=== PATIENT | male | born 1990 | race Caucasian/White ===

== ENCOUNTER 2018-10-30 19:37 | Emergency (ER) | payer BC ==
[2018-10-30 20:10] VITALS: BP 116/79
[2018-10-30] MEDS ORDERED: Tetracaine HCl/PF 0.5% 4 ML Bottle EYELF ONE (20:27)
--- NOTE | 2018-10-30 20:38 | EDM.PDOC ---
ED HPI GENERAL MEDICAL PROBLEM - General Chief Complaint: Eye Problems Stated Complaint: SOMETHING IN EYE Time Seen by Provider: 10/30/18 20:30 Source of Information: Reports: Patient History Limitations: Reports: No Limitations - History of Present Illness INITIAL COMMENTS - FREE TEXT/NARRATIVE: pt arrived with a foreign body in his rt eye. This occured earlier this afternoon. He is mildly uncomfortable. Onset: Today Duration: Hour(s): Location: Reports: Face Associated Symptoms: Reports: No Other Symptoms right eye Pain Score (Numeric/FACES): 3 - Related Data Allergies Allergy/AdvReac Type Severity Reaction Status Date / Time No Known Allergies Allergy Verified 10/30/18 19:57 Home Meds: Home Meds NK [No Known Home Meds] 12/08/15 [History] Past Medical History - Past Health History Medical/Surgical History: Denies Medical/Surgical History Musculoskeletal History: Reports: Fracture Neurological History: Reports: Concussion - Past Surgical History HEENT Surgical History: Reports: Other (See Below) Other HEENT Surgeries/Procedures: facial reconstruction surgery Social & Family History - Tobacco Use Smoking Status *Q: Current Every Day Smoker Years of Tobacco use: 12 Packs/Tins Daily: 0.5 - Caffeine Use Caffeine Use: Reports: Coffee - Recreational Drug Use Recreational Drug Use: No ED ROS GENERAL - Review of Systems Review Of Systems: See Below Constitutional: Reports: No Symptoms HEENT: Reports: Other ( rt eye is uncomfortable and he can see a piece of dirt. ) Cardiovascular: Reports: No Symptoms Endocrine: Reports: No Symptoms GI/Abdominal: Reports: No Symptoms : Reports: No Symptoms Musculoskeletal: Reports: No Symptoms Skin: Reports: No Symptoms ED EXAM GENERAL W FULL EYE - Physical Exam Exam: See Below Text/Narrative:: pt arrived with a foreign body in the rt eye. He is not sure what it is. Exam Limited By: No Limitations General Appearance: Alert, Anxious, Moderate Distress, Other (pt has a very small foreign body in the mid lower eye below the pupil. He is uncomfortable with this. ) Ears: Normal TMs Nose: Normal Inspection Throat/Mouth: Normal Inspection Course - Vital Signs Last Recorded V/S: Last Vital Signs Temp 35.2 C L 10/30/18 20:01 Pulse 54 L 10/30/18 20:01 Resp 18 10/30/18 20:01 BP 116/79 10/30/18 20:01 Pulse Ox 98 10/30/18 20:01 - Orders/Labs/Meds Meds: Medications Discontinued Medications Generic Name Dose Route Start Last Admin Trade Name Justina PRN Reason Stop Dose Admin Tetracaine HCl 1 ml 10/30/18 20:27 10/30/18 20:44 Tetracaine 0.5% Steri-Unit Lis EYELF 10/30/18 20:28 1 ml ASDIRECTED ONE Administration - Re-Assessments/Exams Free Text/Narrative Re-Assessment/Exam: 10/30/18 20:54 tetracaine was inserted in the rt eye. Without difficulty the foreign body was removed. The eye was stained which shoed a small indention that pooled the dye where is was removed from. No other injury was noted in the eye. Departure - Departure Time of Disposition: 20:45 Disposition: Home, Self-Care 01 Condition: Fair Clinical Impression: Foreign body of right eye - Discharge Information Instructions: Eye Foreign Body, [id number] Referrals: PCP,None [Primary Care Provider] - Forms: ED Department Discharge Care Plan Goals: foreignbody removed, genatmycin eyedrop s in rt eye tid. for 4 days, dark glasses to avoid bright lite, motrin and tylenol for pain
== END 2018-10-30 21:00 | disposition home or self-care (01) ==
LOC: JP.ED 19:37
DX: T15.01XA Foreign body in cornea, right eye, initial encounter (principal); F17.210 Nicotine dependence, cigarettes, uncomplicated; X58.XXXA Exposure to other specified factors, initial encounter
CPT/HCPCS: 65220; 99282